=== PATIENT | male | born 1950 | race Caucasian/White ===

== ENCOUNTER 2018-04-10 07:26 | Emergency (ER) | payer OTHER ==
[~2018-04-10] VITALS: Ht 177.8 cm; Wt 104.3 kg
--- NOTE | ~2018-04-10 | EKG ---
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
[~2018-04-10 07:26] MED LIST: COLACE100 MG PO; HYDROCHLOROTH12.5 M1 PO; HYDROCODONE-APA1 TA1 PO; IBUPROFEN200 M2 PO; LOPRESSOR50 PO; LOVENOX40 MG/0.4 SQ; MULTIVITAMINS PO; NORVASC 5 MG TAB5 MG PO; NORVASC5 MG PO; PERCOCET 5-3251 EACH PO; PERCOCET 7.5-31 EACH PO; PRINIVIL20 MG PO; TRAMADOL 50 MG50 MG PO
[2018-04-10 07:40] LABS: ABSOLUTE NEUTROPHILS 13.5 thou/uL (1.4-8.2); BASOPHILS 0.4 % (0.0-2.0); HEMATOCRIT 47.7 % (42.0-52.0); HEMOGLOBIN 16.5 gm/dL (14.0-18.0); LYMPHOCYTES 4.8 % (24.0-44.0); MCH 29.5 pg (26.0-34.0); MCHC 34.6 g/dL (28.0-37.0); MCV 85.3 fL (80.0-100.0); PLATELET COUNT 165 thou/uL (150-400); POLYS 89.8 % (36.0-66.0); RDW 13.5 % (10.5-14.5); WBC 15.1 thou/uL (4.0-11.0)
[2018-04-10 08:01] LABS: ANION GAP 16 mmol/L (7-16); BUN 17 mg/dL (7-18); CALCIUM 8.9 mg/dL (8.5-10.1); CHLORIDE 100 mmol/L (98-107); CO2 24 mmol/L (21-32); CREATININE 1.4 mg/dL (0.7-1.3); GLUCOSE 328 mg/dL (74-106); SODIUM 140 mmol/L (136-145)
[2018-04-10 08:03] LABS: POTASSIUM 2.9 mmol/L (3.5-5.1)
[2018-04-10 08:11] LABS: ALBUMIN 4.4 g/dL (3.4-5.0); MAGNESIUM 1.9 mg/dL (1.8-2.4); SGOT 30 U/L (15-37); SGPT 45 U/L (30-65); TOTAL BILIRUBIN 0.6 mg/dL (<0.1-1.0); TOTAL PROTEIN 8.3 g/dL (6.4-8.2); TROPONIN-I <0.06 ng/mL (<0.06)
[2018-04-10 08:37] LABS: URINE BILIRUBIN NEGATIVE (Negative); URINE BLOOD TRACE (Negative); URINE CLARITY CLEAR; URINE COLOR YELLOW; URINE GLUCOSE-RANDOM* 2+ (Negative); URINE KETONES 1+ (Negative); URINE LEUKOCYTES-REFLEX NEGATIVE (Negative); URINE NITRITE-REFLEX NEGATIVE (Negative); URINE PROTEIN (DIPSTICK) TRACE (Negative); URINE SPECIFIC GRAVITY 1.015 (1.005-1.035); URINE UROBILINOGEN 0.2 E.U./dl (0.2-1.0)
[2018-04-10] MEDS ORDERED: ZOFRAN ODT8 MG PO (09:22)
[2018-04-10] MEDS ORDERED: ANTIVERT25 MG PO (09:22)
== END 2018-04-10 11:20 | disposition home or self-care (01) ==
LOC: ER 07:26
PROVIDERS: Emergency Medicine
DX: R19.7 Diarrhea, unspecified (principal); R11.2 Nausea with vomiting, unspecified; E86.0 Dehydration; E87.6 Hypokalemia; E11.9 Type 2 diabetes mellitus without complications; I10 Essential (primary) hypertension

== ENCOUNTER 2018-09-06 21:08 | Emergency (ER) | payer OTHER ==
[~2018-09-06] VITALS: Ht 180.3 cm; Wt 104.3 kg
[~2018-09-06 21:08] MED LIST changes: +ANTIVERT25 MG PO; +ZOFRAN ODT8 MG PO
[2018-09-06 21:41] LABS: URINE BILIRUBIN NEGATIVE (Negative); URINE BLOOD 3+ (Negative); URINE CLARITY CLEAR; URINE COLOR YELLOW; URINE GLUCOSE-RANDOM* 1+ (Negative); URINE KETONES NEGATIVE (Negative); URINE LEUKOCYTES-REFLEX NEGATIVE (Negative); URINE NITRITE-REFLEX NEGATIVE (Negative); URINE PROTEIN (DIPSTICK) 2+ (Negative); URINE SPECIFIC GRAVITY >= 1.030 (1.005-1.035); URINE UROBILINOGEN 0.2 E.U./dl (0.2-1.0)
[2018-09-06 22:22] LABS: MUCUS 0-3 Light strn/LPF (None Seen); SQUAMOUS 4-10 Moderate /LPF (0-3); URINE WBC-REFLEX 6-15 Few /HPF (0-5)
[2018-09-06 22:23] LABS: CRYSTALS None Seen /LPF (None Seen); HYALINE CASTS 0-3 Few /LPF (None Seen)
[2018-09-06] MEDS ORDERED: FLOMAX0.4 MG PO (22:24)
[2018-09-06] MEDS ORDERED: KEFLEX500 M1 PO (22:24)
[2018-09-06 23:00] VITALS: BP 170/96
== END 2018-09-06 23:00 | disposition home or self-care (01) ==
LOC: ER 21:08
PROVIDERS: Emergency Medicine
DX: N39.0 Urinary tract infection, site not specified (principal); R39.11 Hesitancy of micturition; I10 Essential (primary) hypertension

== ENCOUNTER 2018-10-05 12:53 | Emergency (ER) | payer OTHER ==
[~2018-10-05] VITALS: Ht 180.3 cm; Wt 104.3 kg
[~2018-10-05 12:53] MED LIST changes: +FLOMAX0.4 MG PO; +KEFLEX500 M1 PO
[2018-10-05] MEDS ORDERED: LIPITOR 20 MG T20 M1 PO (13:02)
[2018-10-05] MEDS ORDERED: METFORMIN HCL500 MG PO (13:02)
[2018-10-05 14:03] LABS: ABSOLUTE NEUTROPHILS 11.6 thou/uL (1.4-8.2); BASOPHILS 0.4 % (0.0-2.0); EOSINOPHILS 1.2 % (0.0-3.0); HEMATOCRIT 44.3 % (42.0-52.0); HEMOGLOBIN 15.5 gm/dL (14.0-18.0); MCH 30.1 pg (26.0-34.0); MCHC 35.1 g/dL (28.0-37.0); MCV 85.8 fL (80.0-100.0); MONOCYTES 7.6 % (1.0-8.0); PLATELET COUNT 154 thou/uL (150-400); POLYS 84.8 % (36.0-66.0); RBC 5.16 mil/uL (4.50-6.00); RDW 13.7 % (10.5-14.5); WBC 13.7 thou/uL (4.0-11.0)
[2018-10-05 14:07] LABS: CALCIUM 8.6 mg/dL (8.5-10.1); CREATININE 1.1 mg/dL (0.7-1.3); POTASSIUM 3.2 mmol/L (3.5-5.1)
[2018-10-05 14:13] LABS: ALBUMIN 3.8 g/dL (3.4-5.0); TOTAL BILIRUBIN 0.5 mg/dL (<0.1-1.0); TOTAL PROTEIN 7.2 g/dL (6.4-8.2)
[2018-10-05 14:27] LABS: URINE BILIRUBIN NEGATIVE (Negative); URINE BLOOD TRACE (Negative); URINE CLARITY CLEAR; URINE COLOR YELLOW; URINE GLUCOSE-RANDOM* TRACE (Negative); URINE KETONES TRACE (Negative); URINE LEUKOCYTES-REFLEX NEGATIVE (Negative); URINE NITRITE-REFLEX NEGATIVE (Negative); URINE PROTEIN (DIPSTICK) NEGATIVE (Negative); URINE SPECIFIC GRAVITY 1.025 (1.005-1.035); URINE UROBILINOGEN 0.2 E.U./dl (0.2-1.0)
[2018-10-05] MEDS ORDERED: REGLAN 10 MG TA10 MG PO (15:14)
[2018-10-05] MEDS ORDERED: BENTYL 20 MG TA20 M1 PO (15:14)
[2018-10-05 16:15] VITALS: BP 148/86
== END 2018-10-05 16:18 | disposition home or self-care (01) ==
LOC: ER 12:53
PROVIDERS: Emergency Medicine
DX: R19.7 Diarrhea, unspecified (principal); R10.9 Unspecified abdominal pain; E87.6 Hypokalemia; I10 Essential (primary) hypertension

== ENCOUNTER 2019-11-26 11:30 | Inpatient (IN) | payer OTHER ==
[~2019-11-26] VITALS: Ht 180.3 cm; Wt 68.2 kg
[2019-11-26] VITALS (10 sets, daily range): BP systolic 122–140; BP diastolic 64–84
[~2019-11-26 11:30] MED LIST changes: +BENTYL 20 MG TA20 M1 PO; +LIPITOR 20 MG T20 M1 PO; +METFORMIN HCL500 MG PO; +REGLAN 10 MG TA10 MG PO
[2019-11-26 11:52] LABS: HEMATOCRIT 46.8 % (42.0-52.0); HEMOGLOBIN 15.8 gm/dL (14.0-18.0); MCH 29.6 pg (26.0-34.0); MCHC 33.7 g/dL (28.0-37.0); MCV 87.7 fL (80.0-100.0); PLATELET COUNT 186 thou/uL (150-400); RBC 5.34 mil/uL (4.50-6.00); RDW 14.3 % (10.5-14.5); WBC 8.3 thou/uL (4.0-11.0)
[2019-11-26 12:00] LABS: CALCIUM 8.9 mg/dL (8.5-10.1); CREATININE 1.2 mg/dL (0.7-1.3); POTASSIUM 3.5 mmol/L (3.5-5.1)
[2019-11-26 12:10] LABS: TOTAL BILIRUBIN 0.6 mg/dL (<0.1-1.0); TOTAL PROTEIN 7.4 g/dL (6.4-8.2); TROPONIN-I 0.58 ng/mL (<0.06)
[2019-11-26 12:24] LABS: CHOLESTEROL 143 mg/dL (<200); HDL CHOLESTEROL 32 mg/dL (>40); LDL CHOLESTEROL 74 mg/dL (<100); TC:HDL 4.5 Ratio (Not establshd); TRIGLYCERIDE 185 mg/dL (<150); VLDL 37 mg/dL (<40)
[2019-11-26 13:44] LABS: ABSOLUTE NEUTROPHILS 5.6 thou/uL (1.4-8.2)
[2019-11-26 13:46] LABS: ANISOCYTOSIS SLIGHT
[2019-11-26] MEDS ORDERED: SILDENAFIL CIT100 MG PO (15:56)
[2019-11-26] MEDS ORDERED: CARVEDILOL25 MG PO (15:57)
[2019-11-26] MEDS ORDERED: AMARYL2 M1 PO (15:57)
--- NOTE | 2019-11-26 16:11 | 2DMMODE ---
[facility] [place] [address] 2 D/M-MODE ECHOCARDIOGRAM Name: LINDSEY GOOD Room #: 211-P ADM IN M.R.#: [id number] Admission: 11/26/19 Attend Phys: Larry Pisano MD Discharge: Date of : 52 Report #: [id number] THIS REPORT FOR: cc: Larry Pisano MD, David W. MD Lundgren, Craig H. MD [facility] ~ APPROVED REPORT Study performed: 11/26/2019 13:53:08 EXAM: Comprehensive 2D, Doppler, and color-flow Echocardiogram Patient Location: Bedside Room #: 211 Status: routine BSA: 2.24 HR: 63 bpm BP: 167/100 mmHg Rhythm: NSR Other Information Study Quality: Adequate Indications DM, HLD, HTN 2D Dimensions IVSd: 12.70 (7-11mm) LVDd: 54.24 mm PWd: 13.85 (7-11mm) Ascending Ao: 36.15 (22-36mm) LVDs: 33.83 (25-40mm) Aortic Root: 40.61 mm Volumes Left Atrial Volume (Systole) Single Plane 4CH: 55.83 mL Single Plane 2CH: 58.84 mL LA ESV Index: 30.00 mL/m2 Aortic Valve AoV Peak Roger.: 1.32 m/s AO Peak Gr.: 7.49 mmHg LVOT Max P.70 mmHg LVOT Max V: 0.65 m/s Mitral Valve MV Peak Gr.: 4.89 mmHg [facility] [address] [place] [address] 2 D/M-MODE ECHOCARDIOGRAM Name: LINDSEY GOOD Room #: 211-P ADM IN M.R.#: [id number] Admission: 11/26/19 Attend Phys: Syeda Jurado Discharge: Date of : 52 Report #: [id number] MV Mean Gr.: 1.10 mmHg E/A Ratio: 0.6 MV Decel. Time: 210.86 ms MV E Max Roger.: 0.54 m/s MV A Roger.: 0.86 m/s MV Max Roger.: 1.11 m/s MV Mean Roger.: 0.47 m/s MV VTI: 234.42 mm IVRT: 166.09 ms Left Ventricle The left ventricle is normal size. Moderate concentric left ventricular hypertrophy. Left ventricular systolic function is mildly decreased. Hypokinesis involving the base of the inferior wall and inferoseptum. Estimated LVEF of 45%. Mild diastolic dysfunction Right Ventricle The right ventricle is normal size. The right ventricular systolic function is normal. Atria The left atrium size is normal. The right atrium size is normal. Aortic Valve The aortic valve is mildly calcified, trileaflet. Trace to mild aortic regurgitation. There is no aortic valvular stenosis. Mitral Valve Mild mitral annular calcification. Trace mitral regurgitation. No evidence of mitral valve stenosis. Tricuspid Valve The tricuspid valve is normal in structure. Trace tricuspid regurgitation. Unable to estimate PA pressure. Pulmonic Valve Pulmonic valve is not well visualized. Great Vessels Aortic root is mildly dilated measuring 4.1 cm at the Sinuses of Valsalva. Ascending aorta is not well visualized. IVC is not well visualized, appears responsive to inspiration. Pericardium There is no pericardial effusion. [facility] [address] [address] 2 D/M-MODE ECHOCARDIOGRAM Name: LINDSEY GOOD Room #: 211-P ADM IN .R.#: [id number] Admission: 11/26/19 Attend Phys: Syeda Jurado Discharge: Date of : 52 Report #: [id number] <Conclusion> Technically difficult study Left ventricular systolic function is mildly decreased. Hypokinesis involving the base of the inferior wall and inferoseptum. Estimated LVEF of 45%. Mild diastolic dysfunction The aortic valve is mildly calcified, trileaflet. Trace to mild aortic regurgitation, no stenosis. Mild mitral annular calcification. Trace mitral regurgitation. Pulmonary artery pressure could not be reliably ascertained. There is no pericardial effusion. <ELECTRONICALLY SIGNED> By: Rubens Li MD, FACC 11/26/19 1610 09 1610 Rubens Li MD, FACC /INF
--- NOTE | 2019-11-26 16:54 | NUR ---
PT CARE ASSUMED APPROX 1350 FROM TAPER PRINTED CIRCUIT LAYOUT POST STEMI WITH STENT PLACEMENT. ASSESSMENT CHARTED. DENIES PAIN AND SOA. VSS. PT COMPLIED WITH BEDREST AND POST CATH PROTOCOLS. RIGHT GROIN POST CATH SITE C/D/I. UP WITH STEADY GAIT ONCE ORDERED BEDREST COMPLETE. MAINTAINING INTEGRILIN GTT AND POST CATH NS. PT DENIES QUESITONS OR CONCERNS REGARDING POC. NO DISTRESS NOTED.
[2019-11-26 23:07] LABS: GLYCOHEMOGLOBIN (HGB A1C) 6.1 % (4.8-5.6)
[2019-11-27 04:45] VITALS: BP 143/75
[2019-11-27 04:45] LABS: HEMATOCRIT 41.4 % (42.0-52.0); HEMOGLOBIN 14.1 gm/dL (14.0-18.0); MCH 29.8 pg (26.0-34.0); MCV 87.7 fL (80.0-100.0); RBC 4.72 mil/uL (4.50-6.00); RDW 14.2 % (10.5-14.5); WBC 8.8 thou/uL (4.0-11.0)
--- NOTE | 2019-11-27 04:45 | NUR ---
ASSUMED PT CARE AT 1900. PT IS ALERT AND ORIENTED. PT IS AMBULATORY. NO SIGN OF DISTRESS NOTED. DENIES ANY PAIN. RIGHT GROIN SITE IS CLEAN, DRY AND INTACT. ASSESSMENT COMPLETED AND DDOCUMENTED. CONTINUE TO MONITOR PATIENT. DENIES ANY FURTHER NEEDS AT THIS TIME.
[2019-11-27 05:02] LABS: ALBUMIN 3.5 g/dL (3.4-5.0); CALCIUM 8.8 mg/dL (8.5-10.1); CREATININE 1.1 mg/dL (0.7-1.3); TOTAL BILIRUBIN 0.7 mg/dL (<0.1-1.0); TOTAL PROTEIN 6.6 g/dL (6.4-8.2)
[2019-11-27 05:11] LABS: POTASSIUM 2.9 mmol/L (3.5-5.1); TROPONIN-I 3.64 ng/mL (<0.06)
[2019-11-27 08:05] VITALS: BP 150/79
--- NOTE | 2019-11-27 10:54 | NUR ---
PT ASSESSED AT 0820, VSS, RIGHT GROIN DRESSING CDI, SOME BRUISING TO RIGHT OF DRESSING, DISCUSSED POC AND PT VERBALIZED UNDERSTANDING, REVIEWED GROIN CARE, NEW MED INFO SHEETS GIVEN, WILL MONITOR.
[2019-11-27 11:35] VITALS: BP 149/73
[2019-11-27 15:35] VITALS: BP 139/70
[2019-11-27 20:33] VITALS: BP 148/73
[2019-11-28 04:45] VITALS: BP 137/74
--- NOTE | 2019-11-28 04:52 | NUR ---
ASSUMED PT CARE AT 1900. PT IS ALERT AND ORIENTED WITH NO SIGN OF DISTRESS NOTED IN PT. DENIES ANY PAIN. PT IS AMBULATORY. NO SCHEDULED MEDS. ASSESSEMENT COMPLETED AND DOCUMENTED. CONTINUE TO MONITOR PATIENT, DENIES ANY FURTHER NEEDS AT THIS TIME.
[2019-11-28] MEDS ORDERED: BENICAR40 MG PO (08:38)
[2019-11-28] MEDS ORDERED: EFFIENT10 MG PO (08:38)
[2019-11-28] MEDS ORDERED: COREG6.25 MG PO (08:38)
[2019-11-28] MEDS ORDERED: ASPIRIN325 PO (08:38)
[2019-11-28] MEDS ORDERED: LIPITOR40 MG PO (08:38)
[2019-11-28 08:56] VITALS: BP 155/80
[2019-11-28 09:13] VITALS: BP 155/80
--- NOTE | 2019-11-28 11:31 | NUR ---
ASSUMED CARE AT SHIFT CHANGE, ALERT AND ORIENTED X4. DENNIES ANY CP OR DISCOMFORT. VSS AND NSR ON THE MONITOR. RT GRION SITE INTACT. DISCHARGE, MEDICATION, AND FOLLOW UP APPIONTMENTES GIVEN TO PATIENT. PATIENT VERBALIZED UNDERSATNDING.
--- NOTE | 2019-11-28 17:24 | CATHLAB ---
[facility] [place] [address] [place] [address] INVASIVE PROCEDURE REPORT Name: LINDSEY GOOD Room #: 211-P DIS IN M.R.#: [id number] Admission: 11/26/19 Attend Phys: Larry Pisano MD Discharge: 11/28/19 Date of : 52 Report #: [id number] THIS REPORT FOR: cc: Larry Pisano MD, David W. MD Mancuso, Gerald M. MD [facility] ~ APPROVED REPORT Study performed: 11/26/2019 11:38:55 Patient Details Patient Status: ED Room #: The patient is a 69 year-old male Event Personnel Gennaro May Sas Developer Analyst, Shantelle Hansen RTR, LIANNA Camarena, [place], Tierra Cortez RN RN, Xiomara Roa RN restaurant attendant Performed Art Access - R femoral artery* Left Heart Cath w/or w/o Coronaries [id number] [facility] Place w/wo Plasty Single RCA [id number] Hemostasis w/ Mynx Indication Chest pain Procedure Narrative The Right Groin^ was infiltrated with 1% Lidocaine subcutaneous anesthesia. A PINNACLE 6FR Sheath #[id number] sheath was inserted into the RFA 6F^. Coronary angiography was performed using coronary diagnostic catheters. The right coronary system was accessed and visualized with a JR4 catheter. The left coronary system was accessed and visualized with a JL4 catheter. The left ventricle was accessed and visualized with a STR PIG catheter. Left ventriculogram was performed in 30 degree projection. Closure device was deployed with a Fr MYNX CONTROL 6F/7F L#[id number]. There was no hematoma. Intraoperative Conscious Sedation Sedation start time: 1150 Case end Time: 1320 Fentanyl 50 mcg Versed 1 mg [facility] [place] [place] [address] INVASIVE PROCEDURE REPORT Name: LINDSEY GOOD Room #: 211-P [facility].#: [id number] Admission: 11/26/19 Attend Phys: Syeda Jurado Discharge: 11/28/19 Date of : 52 Report #: [id number] Fluoro Time: 16.46 minutes Dose: DAP 99080.30 cGycm2 2202 mGy Hemodynamics The aortic pressure is 171/80 mmHg with a mean of 59 mmHg. The left ventricular pressure is 168/13 mmHg with a mean of mmHg. The left ventricular end diastolic pressure is 39 mmHg. PCI Technique Lesion Percutaneous coronary intervention was performed on the mistal right coronary artery. A LAUNCHER 6FR AR1 #[id number] Guide Catheter was used to engage the RCA ostium. BALLOON DILATION A Balloon catheter Sprinter OTW 3.0 x 12 #[id number] was inserted and inflated up to 4.00atm for 13seconds. Additional Inflation: 8atm for 13seconds. Additional Inflation: 8atm for 14seconds. 8ATM FOR 24 SEC....12ATM FOR 45 SEC. STENT DEPLOYMENT A stent XIENCE MASOUD RX 3.5 X 12 #[id number] was inserted and inflated up to 18atm for 33seconds. POST STENT DEPLOYMENT BALLOON DILATION A Balloon catheter TREK NC OTW 4.0 X 12 #[id number] was inserted and inflated up to 14atm for 12seconds. COMMENTS Used the 6f Guide liner to put stent in for support. PCI Technique Lesion 3 Percutaneous Coronary Intervention was performed on the mistal right coronary artery. Conclusion #1. Successful emergent PTCA stent of subtotal distal RCA lesion to 0% placement of a 3.5 x 12 Xience Masoud drug-eluting stent postdilated to 4.0 mm JAYSON grade III flow 0% residual. #2 the mid distal RCA has an eccentric lesion of 60 to 70% we will follow this lesion this was proximal to the culprit lesion. Giving rise to a large PDA CHANDAN widely patent. #3 left main free of disease giving rise to LAD and circumflex #4 the LAD is moderate in size it wraps the apex. There is an eccentric 60% lesion just after diagonal takeoff in the mid vessel. With diffuse distal disease. #5 circumflex OM is small nondominant system. There is a small ramus [facility] [address] [place] [address] INVASIVE PROCEDURE REPORT Name: LINDSEY GOOD Room #: 211-P DIS IN M.R.#: [id number] Admission: 11/26/19 Attend Phys: Syeda Jurado Discharge: 11/28/19 Date of : 52 Report #: [id number] intermedius that has a 60 to 70% lesion but minimal distribution. #6 left ventriculogram revealing inferior basilar mid inferior hypokinesis. EF 45% range expect improvement. Recommendations and plan: Continue aggressive risk factor modification. Dual antiplatelet therapy indefinitely. To CCU in stable but guarded condition. Dominant right coronary was extremely tortuous. Support was an issue here. An AR-1 guide was utilized with a guide liner. Would recommend this approach if intervention again indicated. <ELECTRONICALLY SIGNED> By: Gennaro May MD, FACC 11/28/191721 21 21 Gennaro May MD, FACC /INF
--- NOTE | 2019-11-29 08:02 | EKG ---
[facility] [place] [address] [place] [address] ELECTROCARDIOGRAM REPORT Name: LINDSEY GOOD Room #: 211-P DIS IN M.R.#: [id number] Admission: 11/26/19 Attend Phys: Larry Pisano MD Discharge: 11/28/19 Date of : 52 Report #: [id number] THIS REPORT FOR: cc: Larry Pisano MD, David W. MD Lundgren, Craig H. MD [facility] ~ THIS REPORT FOR: //name// [facility] ED Test Date: 2019-11-26 Test Time: 11:30:35 Pat Name: LINDSEY GOOD Department: Room: [facility] Gender: M Epic Beacon Analyst: HANSA : 1950 Requested By: Rachel Quezada Order Number: [id number] MD: Rubens Li Measurements Intervals [place] Rate: 56 P: 38 [place]: 178 QRS: 39 QRSD: 104 T: 89 QT: 432 QTc: 417 Interpretive Statements Sinus rhythm Inferoposterior infarct, acute (RCA) Probable RV involvement, suggest recording right precordial leads Compared to ECG 04/10/2018 07:57:01 Myocardial infarct finding now present Electronically Signed On 11-29-2019 8:01:23 CDT by Rubens Li [email or web address] <ELECTRONICALLY SIGNED> By: Rubens Li MD, [facility] 11/29/19 0801 1130 1130 Rubens Li MD, [facility] /EPI
--- NOTE | 2019-11-29 09:39 | EKG ---
[facility] [place] [address] ELECTROCARDIOGRAM REPORT Name: LINDSEY GOOD Room #: 211-P DIS IN M.R.#: [id number] Admission: 11/26/19 Attend Phys: Larry Pisano MD Discharge: 11/28/19 Date of : 52 Report #: [id number] THIS REPORT FOR: cc: Larry Pisano MD, David W. MD Lundgren,Rubens Jarvis MD [facility] ~ THIS REPORT FOR: //name// [facility] Test Date: 2019-11-27 Test Time: 07:17:11 Pat Name: LINDSEY GOOD Department: Room: 211 Gender: M Window Cleaner: Cherie SCHWARTZ : 1950 Requested By: Gennaro May Order Number: [id number] MD: Rubens Li Measurements Intervals [place] Rate: 63 P: 14 [place]: 163 QRS: -31 QRSD: 87 T: -51 QT: 441 QTc: 452 Interpretive Statements Sinus rhythm Left axis deviation Borderline repolarization abnormality Compared to ECG 04/10/2018 07:57:01 Injury pattern is no longer present Electronically Signed On 11-29-2019 9:37:50 CDT by Rubens Li [email or web address] <ELECTRONICALLY SIGNED> By: Rubens Li MD, [facility] 11/29/19 0937 0717 6 Rubens Li MD, [facility] /EPI
== END 2019-11-28 12:27 | disposition home or self-care (01) | DRG 246 ==
LOC: ER 11:30 → TBACV 11:45 → 2N 11:45
PROVIDERS: Internal Medicine Cardiovascular Disease; Nurse Practitioner Family; ADMIT Internal Medicine Geriatric Medicine
PROC: 4A023N7 Measurement of Cardiac Sampling and Pressure, Left Heart, Percutaneous Approach (ICD-10-PCS; principal; 2019-11-26)
PROC: B2151ZZ Fluoroscopy of Left Heart using Low Osmolar Contrast (ICD-10-PCS; principal; 2019-11-26)
PROC: 027034Z Dilation of Coronary Artery, One Artery with Drug-eluting Intraluminal Device, Percutaneous Approach (ICD-10-PCS; principal; 2019-11-26)
PROC: B2111ZZ Fluoroscopy of Multiple Coronary Arteries using Low Osmolar Contrast (ICD-10-PCS; principal; 2019-11-26)
DX: I21.11 ST elevation (STEMI) myocardial infarction involving right coronary artery (principal); I50.33 Acute on chronic diastolic (congestive) heart failure; E87.6 Hypokalemia; I20.0 Unstable angina; E11.9 Type 2 diabetes mellitus without complications; E78.5 Hyperlipidemia, unspecified; Z82.49 Family history of ischemic heart disease and other diseases of the circulatory system; Z87.891 Personal history of nicotine dependence; Z79.82 Long term (current) use of aspirin; Z79.899 Other long term (current) drug therapy; Z79.84 Long term (current) use of oral hypoglycemic drugs; I11.0 Hypertensive heart disease with heart failure
CPT/HCPCS: 10081

== ENCOUNTER 2019-12-15 16:26 | Emergency (ER) | payer OTHER ==
[~2019-12-15] VITALS: Ht 180.3 cm; Wt 102.1 kg
[~2019-12-15 16:26] MED LIST changes: +AMARYL2 M1 PO; +ASPIRIN325 PO; +BENICAR40 MG PO; +CARVEDILOL25 MG PO; +COREG6.25 MG PO; +EFFIENT10 MG PO; +LIPITOR40 MG PO; +SILDENAFIL CIT100 MG PO
[2019-12-15 16:46] LABS: ABSOLUTE NEUTROPHILS 5.2 thou/uL (1.4-8.2); BASOPHILS 1.2 % (0.0-2.0); EOSINOPHILS 3.6 % (0.0-3.0); HEMATOCRIT 44.8 % (42.0-52.0); HEMOGLOBIN 15.5 gm/dL (14.0-18.0); LYMPHOCYTES 19.7 % (24.0-44.0); MCH 30.2 pg (26.0-34.0); MCHC 34.6 g/dL (28.0-37.0); MCV 87.5 fL (80.0-100.0); MONOCYTES 10.8 % (1.0-8.0); PLATELET COUNT 228 thou/uL (150-400); POLYS 64.7 % (36.0-66.0); RBC 5.12 mil/uL (4.50-6.00); RDW 14.2 % (10.5-14.5)
[2019-12-15 16:53] LABS: ANION GAP 10 mmol/L (7-16); BUN 20 mg/dL (7-18); CALCIUM 9.6 mg/dL (8.5-10.1); CHLORIDE 102 mmol/L (98-107); CO2 26 mmol/L (21-32); CREATININE 1.2 mg/dL (0.7-1.3); GLUCOSE 86 mg/dL (74-106); POTASSIUM 3.5 mmol/L (3.5-5.1); SODIUM 138 mmol/L (136-145)
[2019-12-15 17:02] LABS: TROPONIN-I <0.06 ng/mL (<0.06)
[2019-12-15 17:39] VITALS: BP 183/97
--- NOTE | 2019-12-16 08:55 | EKG ---
[facility] [place] [address] [place] [address] ELECTROCARDIOGRAM REPORT Name: LINDSEY GOOD Room #: DEP M.R.#: [id number] Admission: 12/15/19 Attend Phys: Discharge: 12/15/19 Date of : 52 Report #: [id number] THIS REPORT FOR: cc: Larry Pisano MD, David W. MD Lundgren, Craig H. 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: [facility] : 1950 Requested By: Arron Galvez Order Number: [id number] MD: Rubens Li Measurements Intervals [place] Rate: 71 P: 32 [place]: 162 QRS: -31 QRSD: 84 T: -24 QT: 406 QTc: 442 Interpretive Statements Sinus rhythm Poor R wave progression Nonspecific T abnormalities, inferior leads Compared to ECG 11/27/2019 07:17:11 No significant change was found Electronically Signed On 12-16-2019 8:54:27 CDT by Rubens Li [email or web address] <ELECTRONICALLY SIGNED> By: Rubens Li MD, [facility] 12/16/19 0854 1626 1626 Rubens Li MD, [facility] /EPI
== END 2019-12-15 17:40 | disposition home or self-care (01) ==
LOC: ER 16:26
PROVIDERS: Emergency Medicine
DX: R07.89 Other chest pain (principal); I10 Essential (primary) hypertension

== ENCOUNTER → 2019-12-24 | Outpatient (CLI) | payer OTHER | LOC: SJCVC 10:40 | DX: I25.10 Atherosclerotic heart disease of native coronary artery without angina pectoris (principal); E78.00 Pure hypercholesterolemia, unspecified; I10 Essential (primary) hypertension; E11.9 Type 2 diabetes mellitus without complications ==

== ENCOUNTER → 2020-01-13 | Outpatient (CLI) | payer OTHER | LOC: SJCVCIMAG 10:55 | DX: I05.9 Rheumatic mitral valve disease, unspecified (principal); I11.9 Hypertensive heart disease without heart failure; I25.10 Atherosclerotic heart disease of native coronary artery without angina pectoris; R07.89 Other chest pain; E78.5 Hyperlipidemia, unspecified; E11.9 Type 2 diabetes mellitus without complications; Z87.891 Personal history of nicotine dependence ==

== ENCOUNTER 2020-11-01 07:34 | Inpatient (IN) | payer OTHER ==
[~2020-11-01] VITALS: Ht 177.8 cm; Wt 108.0 kg
[2020-11-01 07:35] VITALS: BP 139/66
[2020-11-01] MEDS ORDERED: EDARBYCLOR 40-1 EAC1 PO (07:56)
[2020-11-01] MEDS ORDERED: CIPRO500 M1 PO (07:56)
[2020-11-01] MEDS ORDERED: NORVASC5 M1 PO (07:57)
[2020-11-01] MEDS ORDERED: PLAVIX 75 MG TA75 MG PO (07:57)
[2020-11-01 08:18] LABS: ABSOLUTE NEUTROPHILS 5.7 thou/uL (1.4-8.2); EOSINOPHILS 5.9 % (0.0-3.0); HEMATOCRIT 39.1 % (42.0-52.0); HEMOGLOBIN 13.2 gm/dL (14.0-18.0); LYMPHOCYTES 13.1 % (24.0-44.0); MCH 28.9 pg (26.0-34.0); MCHC 33.8 g/dL (28.0-37.0); MCV 85.6 fL (80.0-100.0); MONOCYTES 10.7 % (1.0-8.0); PLATELET COUNT 210 thou/uL (150-400); POLYS 69.3 % (36.0-66.0); RBC 4.57 mil/uL (4.50-6.00); RDW 13.8 % (10.5-14.5); WBC 8.2 thou/uL (4.0-11.0)
[2020-11-01 08:27] LABS: ALBUMIN 3.6 g/dL (3.4-5.0); CREATININE 2.1 mg/dL (0.7-1.3); TOTAL BILIRUBIN 0.6 mg/dL (0.2-1.0); TOTAL PROTEIN 7.1 g/dL (6.4-8.2)
[2020-11-01 08:46] LABS: URINE BILIRUBIN NEGATIVE (Negative); URINE BLOOD 3+ (Negative); URINE CLARITY CLEAR; URINE COLOR YELLOW; URINE GLUCOSE-RANDOM* NEGATIVE (Negative); URINE KETONES NEGATIVE (Negative); URINE NITRITE-REFLEX NEGATIVE (Negative); URINE PROTEIN (DIPSTICK) NEGATIVE (Negative); URINE UROBILINOGEN 0.2 E.U./dl (0.2-1.0)
[2020-11-01 08:47] LABS: URINE LEUKOCYTES-REFLEX 1+ (Negative)
[2020-11-01 09:07] LABS: CASTS None Seen /LPF (None Seen); MUCUS 4-6 Moderate strn/LPF (None Seen); SQUAMOUS 0-3 Few /LPF (0-3)
[2020-11-01 09:08] LABS: BACTERIA-REFLEX None Seen /HPF (None Seen); CRYSTALS None Seen /LPF (None Seen); URINE RBC >20 Many /HPF (0-2); URINE WBC-REFLEX 6-15 Few /HPF (0-5)
[2020-11-01 12:32] LABS: FOLIC ACID 10.8 ng/mL (8.6-58.9)
--- NOTE | 2020-11-01 13:00 | 2DMMODE ---
[facility] [place] [address] [place] [address] 2 D/M-MODE ECHOCARDIOGRAM Name: LINDSEY GOOD Room #: 170-2 ADM IN M.R.#: [id number] Admission: 11/01/20 Attend Phys: Yamilex Ceron MD Discharge: Date of : 52 Report #: [id number] THIS REPORT FOR: cc: Lyly Cheney MD, Stany A. MD Park, Jin S. MD ~ APPROVED REPORT Study performed: 11/01/2020 12:24:00 EXAM: Comprehensive 2D, Doppler, and color-flow Echocardiogram Patient Location: ER Status: routine BSA: 2.24 HR: 65 bpm BP: 152/84 mmHg Rhythm: NSR Other Information Study Quality: Good Indications History of CAD with stent, HTN, HLD, DM. 2D Dimensions RVDd: 31.61 mm IVSd: 12.21 (7-11mm) LVOT Diam: 19.75 (18-24mm) LVDd: 47.55 mm PWd: 11.00 (7-11mm) Ascending Ao: 38.18 (22-36mm) LVDs: 35.45 (25-40mm) Aortic Root: 42.84 mm Volumes Left Atrial Volume (Systole) Single Plane 4CH: 35.28 mL Single Plane 2CH: 53.40 mL LA ESV Index: 22.00 mL/m2 Aortic Valve AoV Peak Roger.: 1.49 m/s AO Peak Gr.: 8.89 mmHg LVOT Max P.30 mmHg LVOT Max V: 0.76 m/s ELMER Vmax: 1.56 cm2 [facility] [address] [place] [address] 2 D/M-MODE ECHOCARDIOGRAM Name: LINDSEY GOOD Room #: 170-2 ADM IN [facility].#: [id number] Admission: 11/01/20 Attend Phys: Syeda Uriostegui Discharge: Date of : 52 Report #: [id number] Mitral Valve E/A Ratio: 0.6 MV Decel. Time: 246.76 ms MV E Max Roger.: 0.52 m/s MV A Roger.: 0.90 m/s MV PHT: 71.56 ms IVRT: 121.11 ms Pulmonary Valve PV Peak Roger.: 1.18 m/s PV Peak Gr.: 5.57 mmHg Tricuspid Valve RAP Estimate: 5.00 mmHg Left Ventricle The left ventricle is normal size. Mild concentric left ventricular hypertrophy. Left ventricular systolic function is normal. LVEF is 55-60%. Mild diastolic dysfunction is present (impaired relaxation pattern). Right Ventricle The right ventricle is normal size. The right ventricular systolic function is normal. Atria The left atrium size is normal. The right atrium size is normal. Aortic Valve Mild aortic valve sclerosis. Trace aortic regurgitation. There is no aortic valvular stenosis. Mitral Valve The mitral valve is normal in structure. Trace mitral regurgitation. No evidence of mitral valve stenosis. Tricuspid Valve The tricuspid valve is normal in structure. There is no tricuspid valve regurgitation noted. Trace tricuspid regurgitation. Pulmonic Valve Pulmonic valve is not well visualized. Great Vessels IVC is normal in size and collapses >50% with inspiration. [facility] [address] [place] [address] 2 D/M-MODE ECHOCARDIOGRAM Name: LINDSEY GOOD Room #: 170-2 ADM IN ..#: [id number] Admission: 11/01/20 Attend Phys: Syeda Uriostegui Discharge: Date of : 52 Report #: [id number] Pericardium There is no pericardial effusion. <Conclusion> The left ventricle is normal size. Mild concentric left ventricular hypertrophy. Left ventricular systolic function is normal. Mild diastolic dysfunction is present (impaired relaxation pattern). The right ventricle is normal size. The left atrium size is normal. Trace aortic regurgitation. Trace mitral regurgitation. <ELECTRONICALLY SIGNED> By: Robby Beltran MD 11/01/20 1259 1259 1259 Robby Beltran MD /INF
[2020-11-01 13:14] VITALS: BP 152/84
[2020-11-01 14:57] VITALS: BP 152/84
[2020-11-01 16:00] VITALS: BP 147/79
[2020-11-01 16:57] VITALS: BP 147/79; BP 173/56
[2020-11-01 19:17] VITALS: BP 155/88
[2020-11-02 06:09] LABS: ABSOLUTE NEUTROPHILS 6.4 thou/uL (1.4-8.2); BASOPHILS 0.8 % (0.0-2.0); EOSINOPHILS 5.2 % (0.0-3.0); HEMATOCRIT 38.2 % (42.0-52.0); LYMPHOCYTES 13.1 % (24.0-44.0); MCH 29.1 pg (26.0-34.0); MCV 85.6 fL (80.0-100.0); MONOCYTES 10.3 % (1.0-8.0); PLATELET COUNT 206 thou/uL (150-400); POLYS 70.6 % (36.0-66.0); RBC 4.47 mil/uL (4.50-6.00); RDW 13.6 % (10.5-14.5)
[2020-11-02 06:14] LABS: CALCIUM 8.7 mg/dL (8.5-10.1); CREATININE 1.8 mg/dL (0.7-1.3); MAGNESIUM 2.1 mg/dL (1.8-2.4); POTASSIUM 3.3 mmol/L (3.5-5.1)
[2020-11-02 07:31] VITALS: BP 148/82
[2020-11-02 15:24] VITALS: BP 133/79
[2020-11-02 19:52] VITALS: BP 160/91
[2020-11-03 07:31] VITALS: BP 164/95
[2020-11-03 09:31] LABS: CALCIUM 9.1 mg/dL (8.5-10.1); CREATININE 1.8 mg/dL (0.7-1.3); POTASSIUM 3.3 mmol/L (3.5-5.1)
[2020-11-03] MEDS ORDERED: PROTONIX 20 MG20 M1 PO (12:26)
[2020-11-03] MEDS ORDERED: NORVASC10 MG PO (12:26)
[2020-11-03] MEDS ORDERED: CARVEDILOL12.5 MG PO (12:26)
[2020-11-03] MEDS ORDERED: KEFLEX500 M1 PO (12:44)
[2020-11-03 12:49] VITALS: BP 164/95
== END 2020-11-03 15:15 | disposition home or self-care (01) | DRG 698 ==
LOC: ER 07:34 → EROBS 10:41 → 4W 10:41
PROVIDERS: Emergency Medicine; Nurse Practitioner; Physician Assistant; ADMIT Hospitalist; ATTEND Hospitalist
DX: N32.9 Bladder disorder, unspecified (principal); N17.0 Acute kidney failure with tubular necrosis; N13.6 Pyonephrosis; I42.9 Cardiomyopathy, unspecified; N39.0 Urinary tract infection, site not specified; R33.9 Retention of urine, unspecified; Z20.822 Contact with and (suspected) exposure to COVID-19; I25.10 Atherosclerotic heart disease of native coronary artery without angina pectoris; E87.6 Hypokalemia; E78.5 Hyperlipidemia, unspecified; Z60.2 Problems related to living alone; N18.9 Chronic kidney disease, unspecified; I12.9 Hypertensive chronic kidney disease with stage 1 through stage 4 chronic kidney disease, or unspecified chronic kidney disease; E11.22 Type 2 diabetes mellitus with diabetic chronic kidney disease; Z79.82 Long term (current) use of aspirin; Z95.5 Presence of coronary angioplasty implant and graft; Z82.49 Family history of ischemic heart disease and other diseases of the circulatory system; Z87.891 Personal history of nicotine dependence; Z80.0 Family history of malignant neoplasm of digestive organs; I25.2 Old myocardial infarction; Z79.899 Other long term (current) drug therapy
CPT/HCPCS: 10040

== ENCOUNTER 2020-12-25 22:19 | Emergency (ER) | payer OTHER ==
[~2020-12-25] VITALS: Ht 182.9 cm; Wt 90.7 kg
[~2020-12-25 22:19] MED LIST changes: +CARVEDILOL12.5 MG PO; +CIPRO500 M1 PO; +EDARBYCLOR 40-1 EAC1 PO; +NORVASC10 MG PO; +NORVASC5 M1 PO; +PLAVIX 75 MG TA75 MG PO; +PROTONIX 20 MG20 M1 PO
[2020-12-25 23:18] LABS: ABSOLUTE NEUTROPHILS 0.8 thou/uL (1.4-8.2); BASOPHILS 1.1 % (0.0-2.0); RBC 3.38 mil/uL (4.50-6.00)
[2020-12-25 23:20] LABS: EOSINOPHILS 0.8 % (0.0-3.0); HEMOGLOBIN 10.1 gm/dL (14.0-18.0); LYMPHOCYTES 48.1 % (24.0-44.0); MCH 29.8 pg (26.0-34.0); MCHC 34.6 g/dL (28.0-37.0); MONOCYTES 7.7 % (1.0-8.0); PLATELET COUNT 321 thou/uL (150-400); POLYS 42.3 % (36.0-66.0); RDW 14.7 % (10.5-14.5)
[2020-12-25 23:24] LABS: ANION GAP 11 mmol/L (7-16); BUN 17 mg/dL (7-18); CALCIUM 8.3 mg/dL (8.5-10.1); CHLORIDE 103 mmol/L (98-107); CO2 28 mmol/L (21-32); CREATININE 1.3 mg/dL (0.7-1.3); GLUCOSE 230 mg/dL (74-106); POTASSIUM 3.2 mmol/L (3.5-5.1); PROTIME 10.9 Seconds (9.3-11.4); SODIUM 142 mmol/L (136-145)
[2020-12-25 23:32] LABS: URINE BILIRUBIN NEGATIVE (Negative); URINE BLOOD TRACE (Negative); URINE CLARITY CLEAR; URINE COLOR YELLOW; URINE GLUCOSE-RANDOM* NEGATIVE (Negative); URINE KETONES NEGATIVE (Negative); URINE LEUKOCYTES-REFLEX NEGATIVE (Negative); URINE NITRITE-REFLEX NEGATIVE (Negative); URINE PROTEIN (DIPSTICK) TRACE (Negative); URINE SPECIFIC GRAVITY 1.015 (1.005-1.035); URINE UROBILINOGEN 0.2 E.U./dl (0.2-1.0)
[2020-12-25 23:34] LABS: ALBUMIN 3.3 g/dL (3.4-5.0); SGOT 11 U/L (15-37); SGPT 19 U/L (16-63); TOTAL BILIRUBIN 0.2 mg/dL (0.2-1.0); TOTAL PROTEIN 7.2 g/dL (6.4-8.2); TROPONIN-I <0.06 ng/mL (<0.06)
[2020-12-26 03:52] VITALS: BP 162/103
--- NOTE | 2020-12-26 17:12 | EKG ---
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: juliana : 1950 Requested By: Barbara Hopkins Order Number: [id number] MD: Rubens Li Measurements Intervals [place] Rate: 77 P: 41 [place]: 136 QRS: -20 QRSD: 91 T: 11 QT: 445 QTc: 504 Interpretive Statements Sinus rhythm Leftward axis Nonspecific T wave abnormality Baseline wander in lead(s) V1 Compared to ECG 12/15/2019 16:26:07 No significant change was found Electronically Signed On 12-26-2020 17:12:45 CDT by Rubens Li [email or web address] <ELECTRONICALLY SIGNED> By: Rubens Li MD, [facility] 12/26/20 1712 27 Rubens Li MD, FACC /EPI
== END 2020-12-26 04:30 | disposition short-term general hospital (02) ==
LOC: ER 22:19
PROVIDERS: Emergency Medicine
DX: C79.51 Secondary malignant neoplasm of bone (principal); D70.9 Neutropenia, unspecified; I10 Essential (primary) hypertension; E11.9 Type 2 diabetes mellitus without complications; E78.5 Hyperlipidemia, unspecified; I25.2 Old myocardial infarction; Z79.899 Other long term (current) drug therapy

== ENCOUNTER 2021-06-17 04:51 | Emergency (ER) | payer OTHER ==
[~2021-06-17] VITALS: Ht 180.3 cm; Wt 99.8 kg
[2021-06-17 04:55] VITALS: BP 165/93
[2021-06-17 05:04] LABS: URINE BILIRUBIN NEGATIVE (Negative); URINE BLOOD 3+ (Negative); URINE CLARITY SL CLOUDY; URINE COLOR ORANGE; URINE GLUCOSE-RANDOM* NEGATIVE (Negative); URINE KETONES NEGATIVE (Negative); URINE LEUKOCYTES-REFLEX TRACE (Negative); URINE NITRITE-REFLEX POSITIVE (Negative); URINE PROTEIN (DIPSTICK) 1+ (Negative); URINE SPECIFIC GRAVITY 1.015 (1.005-1.035)
[2021-06-17] MEDS ORDERED: CEPHALEXIN500 MG PO (05:18)
[2021-06-17 05:20] LABS: BACTERIA-REFLEX 1-9 Few /HPF (None Seen); CASTS None Seen /LPF (None Seen); CRYSTALS None Seen /LPF (None Seen); MUCUS None Seen strn/LPF (None Seen); SQUAMOUS None Seen /LPF (0-3); URINE RBC >20 Many /HPF (NONE SEEN); URINE WBC-REFLEX 0-5 Rare /HPF (0-5)
[2021-06-17] MEDS ORDERED: PYRIDIUM100 M1 PO (05:24)
== END 2021-06-17 05:23 | disposition home or self-care (01) ==
LOC: ER 04:51
PROVIDERS: Emergency Medicine
DX: N39.0 Urinary tract infection, site not specified (principal); I10 Essential (primary) hypertension; E11.9 Type 2 diabetes mellitus without complications; E78.5 Hyperlipidemia, unspecified; Z79.899 Other long term (current) drug therapy

== ENCOUNTER → 2021-06-21 | Outpatient (CLI) | payer OTHER ==
[~2021-06-21] MED LIST changes: +CEPHALEXIN500 MG PO; +PYRIDIUM100 M1 PO
== END ==
LOC: SJCVCIMAG 10:17
PROVIDERS: ATTEND Internal Medicine Cardiovascular Disease
DX: I49.3 Ventricular premature depolarization (principal); I49.1 Atrial premature depolarization; I25.10 Atherosclerotic heart disease of native coronary artery without angina pectoris; I10 Essential (primary) hypertension; E78.00 Pure hypercholesterolemia, unspecified; E11.9 Type 2 diabetes mellitus without complications; Z87.891 Personal history of nicotine dependence; Z79.82 Long term (current) use of aspirin; Z79.899 Other long term (current) drug therapy; E78.5 Hyperlipidemia, unspecified

== ENCOUNTER → 2021-10-31 | Outpatient (CLI) | payer OTHER | LOC: SJCVCIMAG 07:01 | PROVIDERS: ATTEND Internal Medicine Cardiovascular Disease | DX: I08.8 Other rheumatic multiple valve diseases (principal); I10 Essential (primary) hypertension; E78.00 Pure hypercholesterolemia, unspecified; E78.5 Hyperlipidemia, unspecified; I25.10 Atherosclerotic heart disease of native coronary artery without angina pectoris; I42.9 Cardiomyopathy, unspecified; Z87.891 Personal history of nicotine dependence; Z79.84 Long term (current) use of oral hypoglycemic drugs; Z79.899 Other long term (current) drug therapy; Z79.82 Long term (current) use of aspirin ==